=== PATIENT | female | born 1955 | race Caucasian/White ===

== ENCOUNTER → 2017-03-21 | Outpatient (CLI) | payer OTHER ==
[~2017-03-21] MED LIST: DIHY1SPR NASAL; DULO30CA45 PO; GABA600T PO; HYDR-3025 PO; HYDR-762 PO; LAMO100T5 PO; MELO-216 PO; MONT5TAB12 PO; NORE1TAB12 PO; TEMA7.5C PO
--- NOTE | 2017-03-22 06:12 | HKNOTE ---
DATE OF SERVICE: 03/21/2017 The patient underwent arthroscopic surgery on her right knee in August of 2016. The symptoms of l ocking and instability have now resolved, but she continues to have a great deal of pain in the knee . 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 She had surgery by Dr. Love, and recently he found th at there was a "new disk." She was given a lumbar epidural cortisone injection yesterday with minim al improvement. The patient is markedly incapacitated by her knee otherwise. The patient gets pain with every step that she takes. She states, "I know I need a knee replacement, but I cannot do it at this time because of my daughte r." The patient is very disabled from ulcerative colitis and Crohn disease as well as psoriasis and apparently a variety of other diseases. PHYSICAL EXAMINATION: VITAL SIGNS: Temperature 98.2, blood pressure 175/82. RIGHT KNEE: The right knee shows normal alignment. Active and passive extension lacks 25 degrees. Active and passive flexion is to 105 degrees. The medial and lateral collateral ligaments and crucia te ligaments are intact. Renetta test is negative. There is no tenderness, scarring, or cysts. The p atella tracks normally. There is no tenderness on the articular surface of the patella or in the pat ellar groove. The Q angle is normal. There is 2+ effusion. There is 6+ crepitus in the knee, none in the patella. IMAGING: Most recent x-rays of her right knee were reviewed. These show extremely severe degenerat xin osteoarthritis of all 3 compartments of the knee, maximum in the patellofemoral joint with compl ete loss of joint space, subchondral sclerosis, and osteophyte formation and lateral subluxation of the patella. MANAGEMENT: The patient is advised that there is no way around it; she will need to have a knee rep lacement sooner or later. Meanwhile, we can nurse her along conservatively with cortisone injection s until such time as she can improve her social situation at home. Under sterile conditions, given injection of 2 mL of Kenalog and 6 mL of 2% lidocaine into the knee, and she will be seen again as necessary. Dictated By: ALEIDA ROBLES/THO Conf#: [id number] [facility]#: [id number]
== END | disposition home or self-care (01) ==
LOC: HKI 15:52
DX: T84.89XA Other specified complication of internal orthopedic prosthetic devices, implants and grafts, initial encounter (principal); M17.11 Unilateral primary osteoarthritis, right knee; Z96.651 Presence of right artificial knee joint
CPT/HCPCS: 20610; G0463

== ENCOUNTER → 2017-08-09 | Outpatient (CLI) | payer OTHER ==
--- NOTE | 2017-08-09 21:27 | HKNOTE ---
DATE OF SERVICE: 08/09/2017 MAIN COMPLAINT: Pain in the right knee. HISTORY OF MAIN COMPLAINT: Patient is a 62-year-old female who has previously undergone a left tota l knee replacement performed by me. She subsequently had to have a revision of the tibial component with a longer stem. She is totally delighted with the results of her left knee replacement. She has degenerative osteoarthritis of the right knee and she comes in complaining of pain in the ri ght knee. She had an arthroscopic operation on the right knee on 09/07/2016 (approximately a year a go.) She benefited greatly from that in that the knee is no longer unstable but she was found to al ve severe arthritis in the knee. She continues to have some pain in the knee. She has had cortiso ne injections since then. They have helped her a great deal. The last cortisone injection was in 2016 and that gave her 4 months of complete relief. Since then she has developed some pain in th e knee which has become progressively worse. PHYSICAL EXAMINATION: VITAL SIGNS: Height 5 feet 4 inches, weight 132 pounds, blood pressure 175/80, temperature 97.8. RIGHT KNEE: Extension is 0 degrees, flexion to 90 degrees, 2+ effusion. 3+ crepitus in the knee an d under the patella. Tender over the medial joint line. Motor strength 5/5. MANAGEMENT: Under sterile conditions, the knee was aspirated of 30 mL of clear yellow fluid. The k nee was then injected with 2 mL of Kenalog and 5 mL of 2% lidocaine. Patient indicates that she would like to have a knee replacement towards the end of the year. 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 Of further interest, note she has had 2 surgeries on her lumbar spine by Dr. Ivan Chambers and has had excellent results but not completely free of pain. She takes [place] 1/2 tablet 2 or 3 times a day for combination of both her knee and the spine. Of further note, patient has an interesting condition, COMMON VARIABLE IMMUNE DEFICIENCY SYNDROME. The patient gets gamma globulin injections every 4 weeks which she administers herself at home. He r fertilizer supervisor is Dr. Amrik Smith ([phone]). I will consult with him prior to her surgery. She indicates that she has to get the injection a day or 2 prior to her surgery for maximum effect. A big question is whether or not the condition lowers her immunity to infection. I indicated to her that I am no longer operating but that I will ask Dr. Aiden Oneill to take over her case. When she returns to the office for her next visit she will see Dr. Oneill. Dictated By: ALEIDA ROBLES/THO Conf#: [id number] DID#: [id number]
== END | disposition home or self-care (01) ==
LOC: HKI 10:05
DX: M17.11 Unilateral primary osteoarthritis, right knee (principal); Z96.652 Presence of left artificial knee joint
CPT/HCPCS: 20610; G0463